=== PATIENT | female | born 1945 | race Caucasian/White ===

== ENCOUNTER → 2017-02-11 | Outpatient (CLI) | payer MEDICARE, OTHER ==
[2017-02-11 14:11] LABS: CHLORIDE,CL 106 mmol/L (98-110); SODIUM,NA 141 mmol/L (136-146)
--- NOTE | 2017-02-11 14:28 | CR ---
EXAMINATION: Abdomen HISTORY: Constipation COMPARISON: 10/20/2007 TECHNIQUE: Single view FINDINGS: There is a small amount of stool and gas throughout the colon without evidence of obstruct ion. No organomegaly. No abnormal calcifications project over the kidneys. The visualized osseous st ructures appear normal. Degenerative changes noted within the lower lumbar spine. IMPRESSION: Nonobstructive bowel gas pattern.
== END ==
LOC: MW.CHFP 13:05
PROVIDERS: ATTEND Student in an Organized Health Care Education/Training Program
DX: K59.00 Constipation, unspecified (principal); R19.5 Other fecal abnormalities; Z00.00 Encounter for general adult medical examination without abnormal findings; R14.0 Abdominal distension (gaseous)
CPT/HCPCS: 36415; 74000; 74000-26; 80053; 80061; 85027; 99214

== ENCOUNTER 2021-02-19 21:00 | Emergency (ER) | payer MEDICARE, OTHER ==
[2021-02-19] MEDS ORDERED: Ibuprofen 800 MG Tab PO ONE (21:47)
--- NOTE | 2021-02-19 21:47 | EDM.PDOC ---
ED HPI GENERAL MEDICAL PROBLEM - General Chief Complaint: Upper Extremity Injury/Pain Stated Complaint: POSSIBLE BROKEN RT WRIST Time Seen by Provider: 02/19/21 21:44 Source of Information: Reports: Patient History Limitations: Reports: No Limitations - History of Present Illness INITIAL COMMENTS - FREE TEXT/NARRATIVE: Patient is a 76-year-old female who presents today for pain to her right hand and wrist. Patient was in her garden tripped over wire landing on outstretched hand. Patient denies any head or have any LOC or other complaints. His pain is mostly in the wrist but does radiate to her elbow. Patient has good range of motion of the elbow. Admits pain better but movement and palpation make the pain worse. Pain is a aching feel right wrist Pain Score (Numeric/FACES): 10 - Related Data Allergies Allergy/AdvReac Type Severity Reaction Status Date / Time oxycodone Allergy Nausea Verified 02/19/21 21:41 Home Meds: Home Meds . [No Known Home Meds] 02/19/21 [History] Review of Systems - Review of Systems Review Of Systems: See Below Constitutional: Reports: No Symptoms Eyes: Reports: No Symptoms Ears: Reports: No Symptoms Nose: Reports: No Symptoms Mouth/Throat: Reports: No Symptoms Respiratory: Reports: No Symptoms Cardiovascular: Reports: No Symptoms GI/Abdominal: Reports: No Symptoms Genitourinary: Reports: No Symptoms Musculoskeletal: Reports: Arm Pain, Hand Pain Skin: Reports: No Symptoms Neurological: Reports: No Symptoms Psychiatric: Reports: No Symptoms ED EXAM, GENERAL - Physical Exam Exam: See Below Exam Limited By: No Limitations General Appearance: Alert, WD/WN Respiratory/Chest: No Respiratory Distress, Lungs Clear Cardiovascular: Normal Peripheral Pulses, Regular Rate, Rhythm Peripheral Pulses: 2+: Radial (L), Radial (R) Extremities: No: Normal Inspection, Normal Range of Motion, Non-Tender (deformity ti right wrist ) Neurological: Alert, Oriented ED TRAUMA EXTREMITY PROCEDURES - Splinting Right Upper Extremity Splint Site: right wrist Pre-Procedure NV Status: Normal Post-Procedure NV Status: Normal Splint Material: Fiberglass Splint Design: Volar, Posterior Applied & Form Fitted By: Provider Provider Post-Splint Application NV Check: NV Status Normal Complications: No Course - Vital Signs Last Recorded V/S: Last Vital Signs Temp 97.2 F 02/19/21 21:35 Pulse 66 02/20/21 00:25 Resp 18 02/20/21 00:25 BP 134/51 L 02/20/21 00:25 Pulse Ox 96 02/20/21 00:25 - Orders/Labs/Meds Meds: Medications Discontinued Medications Generic Name Dose Route Start Last Admin Trade Name Guido PRN Reason Stop Dose Admin Ibuprofen 800 mg 02/19/21 21:47 02/19/21 21:53 Ibuprofen 800 Mg Tab PO 02/19/21 21:48 800 mg ONETIME ONE Administration Ondansetron HCl 4 mg 02/20/21 00:10 02/20/21 00:21 Ondansetron 4 Mg Tab.Dis PO 02/20/21 00:11 4 mg ONETIME ONE Administration Oxycodone/Acetaminophen 1 tab 02/20/21 00:10 02/20/21 00:21 Acetaminophen/Oxycodone 325-5 Mg Tab PO 02/20/21 00:11 1 tab ONETIME ONE Administration - Re-Assessments/Exams Free Text/Narrative Re-Assessment/Exam: 02/19/21 23:19 Patient x-ray shows a comminuted radial fracture. Given orthopedics here and will send patient with refer to my not we will provide the number for the call to make an appointment. Patient will be placed in a splint here in ED. Departure - Departure Time of Disposition: 23:20 Disposition: Home, Self-Care 01 Condition: Good Clinical Impression: Radius fracture - Discharge Information *PRESCRIPTION DRUG MONITORING PROGRAM REVIEWED*: Not Applicable *COPY OF PRESCRIPTION DRUG MONITORING REPORT IN PATIENT BRITTANY: Not Applicable Instructions: Radial Fracture Referrals: PCP,None [Primary Care Provider] - Forms: ED Department Discharge Additional Instructions: The following information is given to patients seen in the emergency department who are being discharged to home. This information is to outline your options for follow-up care. We provide all patients seen in our emergency department with a follow-up referral. The need for follow-up, as well as the timing and circumstances, are variable depending upon the specifics of your emergency department visit. If you don't have a primary care physician on staff, we will provide you with a referral. We always advise you to contact your personal physician following an emergency department visit to inform them of the circumstance of the visit and for follow-up with them and/or the need for any referrals to a consulting specialist. The emergency department will also refer you to a specialist when appropriate. This referral assures that you have the opportunity for follow-up care with a specialist. All of these measure are taken in an effort to provide you with optimal care, which includes your follow-up. Under all circumstances we always encourage you to contact your private physician who remains a resource for coordinating your care. When calling for follow-up care, please make the office aware that this follow-up is from your recent emergency room visit. If for any reason you are refused follow-up, please contact the [facility] Emergency Department at and asked to speak to the emergency department charge nurse. Please follow up with your primary care physician. If you do not have a primary care physician, see below: Maco Iglesias Jr., Orthopedic Surgery [phone] [address] [place] [id number] [address] You were seen today at the treatment fall you have a comminuted impacted intra- articular distal radial and ulnar fracture with some dorsal angulation that will likely require surgery. We have provided you the number above to call the physician to schedule an appointment. Your pain is well controlled currently but we still feel some pain meds. Please return to the ED if you cannot reach obtain orthopedic follow-up. Sepsis Event Note (ED) - Focused Exam Vital Signs: Vital Signs Temp Pulse Resp BP Pulse Ox 02/20/21 00:25 66 18 134/51 L 96 02/19/21 23:15 64 148/68 H 94 L 02/19/21 22:46 61 145/58 H 94 L 02/19/21 22:19 61 18 134/61 93 L 02/19/21 21:35 97.2 F 66 18 134/65 98 - Assessment/Plan Plan: Patient 76-year-old female presents today had a fall and outstretched hand. Patient has obvious wrist deformity. Will obtain x-ray give pain control and reassess.
--- NOTE | 2021-02-19 23:05 | CR ---
Indication: Fall Technique: Two views of the right forearm Comparison: No comparison Findings: Comminuted impacted distal radius intra-articular fracture with dorsal angulation. Ulnar styloid fracture. Soft tissue swelling. Dictated by Chitra Perales MD @ 02/19/2021 11:04:[address] Chitra Perales @ Feb 19 2021 11:04PM
--- NOTE | 2021-02-19 23:09 | CR ---
Indication: Fall Technique: Three views the right wrist Findings : Comminuted impacted intra-articular distal radius and ulnar fractures dorsal angulation. Soft tissue swelling. Dictated by Chitra Perales MD @ 02/19/2021 11:08:[address] Chitra Perales @ Feb 19 2021 11:08PM
--- NOTE | 2021-02-19 23:09 | CR ---
Indication: Fall Technique: Three-views of the right hand Findings: Impacted comminuted intra-articular distal radius fracture and ulnar styloid fracture. Dictated by Chitra Perales MD @ 02/19/2021 11:07:[address] Chitra Perales @ Feb 19 2021 11:07PM
[2021-02-20] MEDS ORDERED: Ondansetron 4 MG Tab.DIS PO ONE (00:10)
[2021-02-20] MEDS ORDERED: Acetaminophen/oxyCODONE 325-5 MG Tab PO ONE (00:10)
== END 2021-02-20 00:58 | disposition home or self-care (01) ==
LOC: MW.ED 21:00
DX: S52.571A Other intraarticular fracture of lower end of right radius, initial encounter for closed fracture (principal); S52.601A Unspecified fracture of lower end of right ulna, initial encounter for closed fracture; Z88.5 Allergy status to narcotic agent; W01.0XXA Fall on same level from slipping, tripping and stumbling without subsequent striking against object, initial encounter
CPT/HCPCS: 29125; 73090; 73110; 73130; 99283; A9270

== ENCOUNTER 2021-02-21 12:54 | Emergency (ER) | payer MEDICARE, OTHER ==
--- NOTE | 2021-02-21 13:01 | EDM.PDOC ---
ED HPI GENERAL MEDICAL PROBLEM - General Chief Complaint: Upper Extremity Injury/Pain Stated Complaint: splint is too tight Time Seen by Provider: 02/21/21 12:58 Source of Information: Reports: Patient History Limitations: Reports: No Limitations - History of Present Illness INITIAL COMMENTS - FREE TEXT/NARRATIVE: HISTORY AND PHYSICAL: History of present illness: The patient is a 76-year-old female who presents to the emergency room with complaints of left upper extremity splint being too tight. She was seen in the emergency room on February 19, 2021 after a fall and diagnosed with a comminuted impacted intraarticular distal radial and ulnar fracture with some dorsal angulation. A splint was applied at that time and that time the fit was appropriate. The patient states that the last day she has had increased swelling in her arthritic joints of her fingers and needs more room in the splint. She has a follow-up with orthopedics in 3 days. The patient denies any fever, chills, headache, change in vision, syncope or near syncope. Denies any chest pain, back pain, shortness of breath or cough. Denies any abdominal pain, nausea, vomiting, diarrhea, constipation or dysuria. Has not noted any blood in urine or stool. Patient has been eating and drinking appropriately. Review of systems: As per history of present illness and below otherwise all systems reviewed and negative. Past medical history: As per history of present illness and as reviewed below otherwise noncontributory. Surgical history: As per history of present illness and as reviewed below otherwise noncontributory. Social history: See social history for further information Family history: As per history of present illness and as reviewed below otherwise noncontributory. Physical exam: General: Well developed and well nourished. Alert and orientated x 3. Nontoxic in appearance and in no acute distress. Vital signs are stable and have been reviewed by me. Nursing notes were reviewed. HEENT: Atraumatic, normocephalic, pupils equal and reactive bilaterally, negative for conjunctival pallor or scleral icterus, mucous membranes moist, TMs normal bilaterally, throat clear, neck supple, nontender, trachea midline. No drooling or trismus noted. No meningeal signs. No hot potato voice noted. Lungs: Clear to auscultation bilaterally. No wheezes, rales, or rhonchi. Chest nontender. Normal work of breathing, no accessory muscles used. Heart: S1S2, regular rate and rhythm without overt murmur, gallops, or rubs. No JVD. No peripheral edema Abdomen: Soft, nondistended, nontender. Normoactive bowel sounds. Negative for masses or costovertebral tenderness. Skin: Intact, warm, dry. No lesions or rashes noted. Hematologic: No petechiae or purpra. Mucosa appropriate color and normal nail bed color and refill. Extremities: Left upper extremity in a splint. Moves all other extremities per self without difficulty or deficits, negative for cords or calf pain. Neurovascular unremarkable. Neuro: Awake, alert, oriented. Cranial nerves II through XII unremarkable. Cerebellum unremarkable. Motor and sensory unremarkable throughout. Exam nonfocal. Psychiatric: Mood and affect are appropriate. Normal thought process. Answering questions appropriately. Notes: *This patient was seen and evaluated during the 2019 SARS-CoV-2 novel coronavirus pandemic period. Community viral transmission is ongoing at time of this encounter and the emergency department is operating under pandemic response procedures. The patient is here due to splint tightness of her left upper extremity. She was seen in the emergency room on February 19, 2021 after a fall and diagnosed with a comminuted impacted intra-articular distal radial and ulnar fracture with some dorsal angulation that would likely require surgery. She was fitted with a splint but today complaints of increased tightness. The patient has arthritic fingers and requires more spacing. We removed the splint and applied a new splint. Post splint check reveals good sensation, color, and warmth. I have talked with the patient about today's findings, in addition to providing specific details for plan of care. Reassessment at the time of disposition demonstrates that the patient is in no acute distress. The patient is stable for discharge, counseling was provided and we discussed in great detail signs and symptoms that would prompt them to return to the Emergency Department. Medication, follow up and supportive care measures were reviewed and discussed. Voices understanding and is agreeable to plan of care. Denies any further questions or concerns at this time. Impression: Cast discomfort Plan: 1. You were evaluated today on an emergent basis. Your complains of splint tightness was evaluated with examination and found to be too tight. You were treated with removing that splint and you splint to your left upper extremity. Continue to keep the splint clean and dry and use your sling. Keep your follow- up appointment with orthopedics. 2. You can alternate Tylenol and ibuprofen as needed for pain and fever management. 3. We encourage you to follow up with your primary care provider and/or recommended specialist in the next few days for re-evaluation and further care/management. 4. If your symptoms should worsen, new symptoms develop or any of the signs and symptoms we discussed should arise please return to the emergency room or call 911 (if needed). Definitive disposition and diagnosis as appropriate pending reevaluation and review of above. Right Wrist Pain Score (Numeric/FACES): 9 - Related Data Allergies Allergy/AdvReac Type Severity Reaction Status Date / Time oxycodone Allergy Nausea Verified 02/21/21 13:29 Home Meds: Home Meds . [No Known Home Meds] 02/19/21 [History] Past Medical History HEENT History: Reports: None Cardiovascular History: Reports: None Respiratory History: Reports: None Gastrointestinal History: Reports: None Genitourinary History: Reports: None TREATING ENGINEER History: Reports: None Musculoskeletal History: Reports: None Neurological History: Reports: None Psychiatric History: Reports: None Endocrine/Metabolic History: Reports: None Insulin Pump Model and Manager Ent: None Hematologic History: Reports: None Immunologic History: Reports: None Dermatologic History: Reports: None - Infectious Disease History Infectious Disease History: Reports: None - Past Surgical History Head Surgeries/Procedures: Reports: None GI Surgical History: Reports: Cholecystectomy Female Surgical History: Reports: Other (See Below) Other Female Surgeries/Procedures: Ovarian Cyst Neurological Surgical History: Reports: None Social & Family History - Caffeine Use Caffeine Use: Reports: Tea Review of Systems - Review of Systems Review Of Systems: Comprehensive ROS is negative, except as noted in HPI. ED EXAM, GENERAL - Physical Exam Exam: See Below (See dictation) Course - Vital Signs Last Recorded V/S: Last Vital Signs Temp 97 F 02/21/21 13:29 Pulse 64 02/21/21 13:29 Resp 16 02/21/21 13:29 BP 140/62 02/21/21 13:29 Pulse Ox 97 02/21/21 13:29 Departure - Departure Time of Disposition: 13:31 Disposition: Home, Self-Care 01 Condition: Good Clinical Impression: Cast discomfort - Discharge Information *PRESCRIPTION DRUG MONITORING PROGRAM REVIEWED*: No *COPY OF PRESCRIPTION DRUG MONITORING REPORT IN PATIENT BRITTANY: No Instructions: Cast or Splint Care, Adult, [id number] Referrals: PCP,None [Primary Care Provider] - Forms: ED Department Discharge Additional Instructions: The following information is given to patients seen in the emergency department who are being discharged to home. This information is to outline your options for follow-up care. We provide all patients seen in our emergency department with a follow-up referral. The need for follow-up, as well as the timing and circumstances, are variable depending upon the specifics of your emergency department visit. If you don't have a primary care physician on staff, we will provide you with a referral. We always advise you to contact your personal physician following an emergency department visit to inform them of the circumstance of the visit and for follow-up with them and/or the need for any referrals to a consulting specialist. The emergency department will also refer you to a specialist when appropriate. This referral assures that you have the opportunity for follow-up care with a specialist. All of these measure are taken in an effort to provide you with optimal care, which includes your follow-up. Under all circumstances we always encourage you to contact your private physician who remains a resource for coordinating your care. When calling for follow-up care, please make the office aware that this follow-up is from your recent emergency room visit. If for any reason you are refused follow-up, please contact the [facility] Emergency Department at and asked to speak to the emergency department charge nurse. [facility] [address] [place] [address] [id number] [address] [address] Plan: 1. You were evaluated today on an emergent basis. Your complains of splint tightness was evaluated with examination and found to be too tight. You were treated with removing that splint and you splint to your left upper extremity. Continue to keep the splint clean and dry and use your sling. Keep your follow- up appointment with orthopedics. 2. You can alternate Tylenol and ibuprofen as needed for pain and fever management. 3. We encourage you to follow up with your primary care provider and/or recommended specialist in the next few days for re-evaluation and further care/management. 4. If your symptoms should worsen, new symptoms develop or any of the signs and symptoms we discussed should arise please return to the emergency room or call 911 (if needed). Sepsis Event Note (ED) - Focused Exam Vital Signs: Vital Signs Temp Pulse Resp BP Pulse Ox 02/21/21 13:29 97 F 64 16 140/62 97
== END 2021-02-21 13:42 | disposition home or self-care (01) ==
LOC: MW.ED 12:54
DX: Z46.89 Encounter for fitting and adjustment of other specified devices (principal); Z88.5 Allergy status to narcotic agent
CPT/HCPCS: 99282

== ENCOUNTER 2024-03-01 11:31 | Emergency (ER) | payer MEDICARE, OTHER ==
[2024-03-01 12:38] LABS: BASOPHILS ABSOLUTE AUTO 0.04 K/uL (0.00-0.20); BASOPHILS PERCENT AUTO 0.6 % (0.0-1.0); EOSINOPHILS ABSOLUTE AUTO 0.05 K/uL (0.00-0.45); EOSINOPHILS PERCENT AUTO 0.8 % (0.0-6.0); HEMATOCRIT 42.6 % (37.0-47.0); HEMOGLOBIN 14.6 g/dL (12.0-16.0); IMMATURE GRAN ABSOLUTE AUTO 0.01 K/uL (0.00-0.05); IMMATURE GRAN PERCENT AUTO 0.2 % (0.0-0.4); LYMPHOCYTES ABSOLUTE AUTO 1.23 K/uL (1.00-4.80); LYMPHOCYTES PERCENT AUTO 19.6 % (24.0-44.0); MEAN CORPUSCULAR HEMOGLOBIN 31.2 pg (28.0-32.0); MEAN CORPUSCULAR HGB CONC 34.3 g/dL (32.0-36.0); MEAN PLATELET VOLUME 8.7 fL (9.4-12.3); MONOCYTES ABSOLUTE AUTO 0.66 K/uL (0.00-0.80); MONOCYTES PERCENT AUTO 10.5 % (0.0-8.0); NEUTROPHILS PERCENT AUTO 68.3 % (41.0-71.0); PLATELET COUNT,PLT 224 K/uL (150-400); RED BLOOD CELL COUNT 4.68 M/uL (4.10-5.30); WHITE BLOOD CELL COUNT,WBC 6.29 K/uL (3.9-11.3)
[2024-03-01 13:17] LABS: A/G RATIO 1.1 (0.9-1.6); BILIRUBIN TOTAL 0.7 mg/dL (0.2-1.0); CALCIUM 8.9 mg/dL (8.5-10.1); CARBON DIOXIDE,CO2 29.3 mmol/L (21.0-32.0); CREATININE 0.8 mg/dL (0.6-1.0); EST CRCL DRUG DOSING (CG) 55.13 mL/min; POTASSIUM,K 4.2 mmol/L (3.5-5.1); PROTEIN TOTAL,TP 7.5 g/dL (6.4-8.2); TSH ULTRASENSITIVE 1.7 uIU/mL (0.36-3.74)
== END 2024-03-01 15:33 | disposition home or self-care (01) ==
LOC: MW.ED 11:31
DX: R00.2 Palpitations (principal); R42 Dizziness and giddiness; Z75.8 Other problems related to medical facilities and other health care; Z88.5 Allergy status to narcotic agent; Z90.49 Acquired absence of other specified parts of digestive tract; Z90.710 Acquired absence of both cervix and uterus
CPT/HCPCS: 36415; 71045; 71045-26; 80053; 84443; 84484; 85025; 93005; 93010; 99282; 99285

== ENCOUNTER 2024-04-01 08:58 | Emergency (ER) | payer MEDICARE, OTHER ==
[2024-04-01 09:26] LABS: BASOPHILS ABSOLUTE AUTO 0.04 K/uL (0.00-0.20); BASOPHILS PERCENT AUTO 0.7 % (0.0-1.0); EOSINOPHILS ABSOLUTE AUTO 0.11 K/uL (0.00-0.45); EOSINOPHILS PERCENT AUTO 1.9 % (0.0-6.0); HEMATOCRIT 41.8 % (37.0-47.0); HEMOGLOBIN 14.3 g/dL (12.0-16.0); IMMATURE GRAN ABSOLUTE AUTO 0.01 K/uL (0.00-0.05); IMMATURE GRAN PERCENT AUTO 0.2 % (0.0-0.4); LYMPHOCYTES ABSOLUTE AUTO 1.69 K/uL (1.00-4.80); LYMPHOCYTES PERCENT AUTO 29.5 % (24.0-44.0); MEAN CORPUSCULAR HEMOGLOBIN 31.1 pg (28.0-32.0); MEAN CORPUSCULAR HGB CONC 34.2 g/dL (32.0-36.0); MEAN CORPUSCULAR VOLUME 90.9 fL (83.0-99.0); MEAN PLATELET VOLUME 8.8 fL (9.4-12.3); MONOCYTES ABSOLUTE AUTO 0.67 K/uL (0.00-0.80); MONOCYTES PERCENT AUTO 11.7 % (0.0-8.0); NEUTROPHILS ABSOLUTE AUTO 3.21 K/uL (1.80-7.70); PLATELET COUNT,PLT 229 K/uL (150-400); WHITE BLOOD CELL COUNT,WBC 5.73 K/uL (3.9-11.3)
[2024-04-01 09:42] LABS: A/G RATIO 1.3 (0.9-1.6); BILIRUBIN TOTAL 0.6 mg/dL (0.2-1.0); CALCIUM 8.9 mg/dL (8.5-10.1); CREATININE 0.8 mg/dL (0.6-1.0); EST CRCL DRUG DOSING (CG) 55.13 mL/min; POTASSIUM,K 3.6 mmol/L (3.5-5.1)
[2024-04-01 09:48] LABS: LIPASE 69 U/L (16-77); PRO B-TYPE NATRIUR PEPT,BNPPRO 212 pg/mL (0-450)
[2024-04-01 09:59] LABS: TSH ULTRASENSITIVE 3.31 uIU/mL (0.36-3.74)
[2024-04-01 11:12] LABS: APPEARANCE,URINE CLEAR; BILIRUBIN,URINE NEGATIVE (NEGATIVE); COLOR,URINE YELLOW; GLUCOSE,URINE NEGATIVE (NEGATIVE); KETONES,URINE NEGATIVE (NEGATIVE); LEUKOCYTE ESTERASE,URINE SMALL (NEGATIVE); NITRITE,URINE NEGATIVE (NEGATIVE); OCCULT BLOOD,URINE SMALL (NEGATIVE); PROTEIN,URINE NEGATIVE (NEGATIVE); UROBILINOGEN,URINE 0.2 EU/dL (<2.0)
[2024-04-01 11:22] LABS: BACTERIA,URINE FEW (NEGATIVE); EPITHELIAL CELLS,URINE OCCASIONAL (NONE-FEW); RBC,URINE 0-2 (0-2/HPF); WBC,URINE 0-3 (0-5/HPF)
== END 2024-04-01 12:41 | disposition home or self-care (01) ==
LOC: MW.ED 08:58
DX: R42 Dizziness and giddiness (principal); R06.02 Shortness of breath; R53.83 Other fatigue; Z90.49 Acquired absence of other specified parts of digestive tract; Z90.710 Acquired absence of both cervix and uterus; Z88.6 Allergy status to analgesic agent; Z75.8 Other problems related to medical facilities and other health care
CPT/HCPCS: 36415; 70450; 70450-26; 71045; 71045-26; 80053; 81001; 83690; 83880; 84443; 84484; 85025; 85379; 99285